=== PATIENT | female | born 1970 | race Caucasian/White ===

== ENCOUNTER 2022-10-17 11:04 | Emergency (ER) | payer OTHER, SELFPAY ==
[2022-10-17 11:18] VITALS: BP 132/87; PULSE 67; RESP 20; TEMP 36.6; O2SAT 100; BMI 26.5
--- NOTE | 2022-10-17 11:36 | ED_ITS ---
HPI - Extremity Injury (Upper) General Chief Complaint: Extremity Pain/Injury, Upper Stated Complaint: Broken right arm Time Seen by Provider: 10/17/22 11:29 History of Present Illness HPI narrative: This 52-year-old female comes in with an injury to her right wrist that occurred about an hour prior to arrival. She slipped on ice and fell onto her right outstretched hand. She has a deformity at the right wrist. She did not hit her head or have any other injury. She is otherwise in good health. Related Data Home Medications Medication Instructions Recorded Confirmed fluoxetine 40 mg capsule (Prozac) 40 mg PO DAILY 10/17/22 10/17/22 Previous Rx's Medication Instructions Recorded hydrocodone 5 mg-acetaminophen 325 1 tab PO Q4-6H PRN pain #20 tabs 10/17/22 mg tablet Allergies Allergy/AdvReac Type Severity Reaction Status Date / Time No Known Drug Allergies Allergy Verified 10/17/22 11:21 Review of Systems Status of ROS: Reports: 10 or more systems reviewed and unremarkable except as noted in History and below Narrative: Constitutional: No fevers, no weight gain or loss. Eyes: No discharge. No vision changes. HENT: No congestion, no sore throat, no ear pain. Cardiovascular: No chest pain, no palpitations. Respiratory: No shortness of breath, no wheezes, no cough. Gastrointestinal: No abdominal pain, no vomiting, no diarrhea. Genitourinary: No dysuria, no hematuria. Musculoskeletal: Right wrist injury as described above. Skin: No rashes, no pruritis. Neurological: No dizziness, weakness, sensory change, speech change. Endo/Heme/Allergies: No bruising or bleeding. No polydipsia. Pysch: no suicidality, no anxiety, no insomnia. All other systems reviewed and are negative. PFSH PFS Social History Smoking Status: Never smoker Do you use any of these nicotine containing products: None Second hand tobacco smoke exposure: No How often do you have a drink containing alcohol: 4 or more times a week How many standard drinks containing alcohol do you have on a typical day: 1 or 2 How often do you have six or more drinks on one occasion: Never AUDIT-C Alcohol total score: 4 Non-prescribed substance use: denies use Exam Narrative: Exam Narrative: Constitutional: Well-developed, well-nourished, no acute distress. HEENT: Normocephalic, atraumatic. Neck: Normal range of motion. Nontender. Supple. Heart: Intact distal pulses. Lungs: No chest discomfort. No wheezes, rhonchi, or rales. Abdomen: Nontender. Back: Normal range of motion. Extremities: Mild swelling in the right wrist with some dorsal angulation typical of wrist fracture. There is no skin injury. Skin: Intact. No rash. Warm. No erythema or pallor. Neurologic: No altered sensation. No weakness. Alert and oriented. Psychiatric: No suicidality. No anxiety or depression. No insomnia. Nursing notes and vitals signs are reviewed. Const: Vital Signs, click to edit/add: Vital Signs - 24 hr 10/17/22 11:18 Temperature 97.8 F Pulse Rate [Pulse Oximeter] 67 Respiratory Rate 20 Blood Pressure [Le ft Upper Arm] 132/87 Pulse Oximetry 100 Oxygen Delivery Me thod Room Air Course Vital Signs Vital signs: Initial Vital Signs Temperature 97.8 F 10/17/22 11:18 Temperature Source Temporal Artery Scan 10/17/22 11:18 Pulse Rate 67 10/17/22 11:18 Respiratory Rate 20 10/17/22 11:18 Blood Pressure 132/87 10/17/22 11:18 Blood Pressure Mean 102 10/17/22 11:18 Blood Pressure Position Sitting 10/17/22 11:18 Pulse Oximetry 100 10/17/22 11:18 Oxygen Delivery Method 10/17/22 11:18 Vital Signs Temperature 97.8 F 10/17/22 11:18 Pulse Rate 67 10/17/22 11:18 Respiratory Rate 20 10/17/22 11:18 Blood Pressure 132/87 10/17/22 11:18 Pulse Oximetry 100 10/17/22 11:18 Oxygen Delivery Method 10/17/22 11:18 Temperature 97.8 F 10/17/22 11:18 Pulse Rate 67 10/17/22 11:18 Respiratory Rate 20 10/17/22 11:18 Blood Pressure 132/87 10/17/22 11:18 Pulse Oximetry 100 10/17/22 11:18 Oxygen Delivery Method 10/17/22 11:18 MDM - Extremity Injury (Upper) MDM Narrative Medical decision making narrative: This patient comes in with injury to her right wrist. X-ray imaging shows a fracture of the distal radius and ulna which is intra-articular and comminuted. The patient did eat about 3 hours prior to arrival. I discussed options with her about pain relief when reducing this fracture. I contacted Anesthesia who was able to do a nerve block. This was placed by anesthesia and got excellent results for her whole right arm. I reduced the fracture and x-ray images post reduction show good improvement and alignment. The patient was placed in a sugar-tong splint using Ortho Glass material. She received a sling and instructions were given regarding care of her injury, the splint, and the sling. Follow-up appointment with orthopedic surgery is arranged and the patient received prescription for tablets of [place]. Imaging Data XR R Wrist: Radiologist's impression: FINDINGS: There is an acute comminuted fracture of the distal radius. Fracture lines extend to the articular surface. There is ulnar and dorsal displacement of the distal fracture fragment. Dorsal tilt of the radial articular surface. Soft tissue swelling about the wrist. IMPRESSION: Acute comminuted displaced intraarticular fracture of the distal radius. Discharge Plan Discharge Clinical Impression: Fracture of wrist Patient Disposition: Home, Self-Care Condition: Improved Additional Instructions: Wear splint and sling. Take medication as needed and directed. Follow up with orthopedic clinic as scheduled. Return if worsening. Prescriptions: New hydrocodone-acetaminophen 5-325 mg tablet 1 tab PO Q4-6H PRN (Reason: pain) Qty: 20 0RF No Action fluoxetine [Prozac] 40 mg capsule 40 mg PO DAILY Follow Up/Referrals: Kaila Saucedo MD [Primary Care Provider] - Stand Alone Forms: [employer] Info Instructions
--- NOTE | 2022-10-17 11:36 | CRLHL7_ITS ---
For Patients: As a result of the Century Cures Act, medical imaging exams and procedure reports are released immediately into your electronic medical record. You may view this report before your referring provider. If you have questions, please contact your health care provider. INDICATION: Injury. TECHNIQUE: Right wrist 3 view. COMPARISON: None. FINDINGS: There is an acute comminuted fracture of the distal radius. Fracture lines extend to the articular surface. There is ulnar and dorsal displacement of the distal fracture fragment. Dorsal tilt of the radial articular surface. Soft tissue swelling about the wrist. IMPRESSION: Acute comminuted displaced intraarticular fracture of the distal radius. Dictated by Whit Morgan MD @ 10/17/2022 12:16:19 PM (Electronically Signed)
--- NOTE | 2022-10-17 13:13 | CRLHL7_ITS ---
For Patients: As a result of the Century Cures Act, medical imaging exams and procedure reports are released immediately into your electronic medical record. You may view this report before your referring provider. If you have questions, please contact your health care provider. Indication: Postreduction.. Technique: Right wrist, 1 views. Comparison: None. Findings/impression: Single lateral view of the right wrist post reduction demonstrates improved anatomic alignment of the fracture fragments. There is decreased degree of impaction at the fracture site compared to the prior examination. Dorsal angulation is also improved. Soft tissue swelling persists surrounding the wrist. Dictated by Miller Mace MD @ 10/17/2022 1:38:10 PM (Electronically Signed)
--- NOTE | 2022-10-17 13:16 | P.NB_ITS ---
Nerve Block Nerve Block Time Seen by Provider: 12:47 Date Seen: 10/17/22 Type of block requested by surgeon for post-operative analgesia: supraclavicular Side: right Time out performed: Yes Verification of patient name: Yes Verification of date of : Yes Site marking: site marked Name of person performing procedure: Yvon Continuous monitoring Was continuous monitoring of O2 sat, B/P, final operations technician, recorded every 15 minutes?: Yes Procedure Checklist: sterile prep, needles and gloves Ultrasound guided. Images saved: Yes Medications given in 5ml increments after negative aspiration: Lidocaine %: 2 mL: 30 Needle gauge: 22 Patient tolerated procedure well: Yes Block Charges Block Charge (with Pro Fee): Brachial Plexus Use of Ultrasound Machine for Block: Yes- US Guidance/pain block
[2022-10-17 13:37] VITALS: BP 130/87; PULSE 74; RESP 18; O2SAT 100
== END 2022-10-17 13:49 | disposition home or self-care (01) ==
PROVIDERS: Emergency Provider Emergency Medicine Emergency Medical Services; PCP Family Medicine
DX: S52.571A Other intraarticular fracture of lower end of right radius, initial encounter for closed fracture (principal); W00.9XXA Unspecified fall due to ice and snow, initial encounter
CPT/HCPCS: 25605; 64415; 73100; 73110; 76942; 99284

== ENCOUNTER 2022-10-24 08:38 | Day surgery (SDC) | payer OTHER, SELFPAY ==
[2022-10-24] VITALS (10 sets, daily range): BP systolic 96–114; BP diastolic 59–79; PULSE 52–62; RESP 16; TEMP 36.2–36.7; O2SAT 95–100; BMI 25.9
--- NOTE | 2022-10-24 09:02 | SUR.PREOP ---
PATIENT REFUSED [facility], ON PERIOD NOW.
[2022-10-24] MEDS: SODIUM CHLORIDE 0.9 % (FLUSH) 10 ML SYRINGE IVF (09:15)
[2022-10-24] MEDS: LACTATED RINGERS 1000 ML 1,000 ML 100 ML IV (09:15)
--- NOTE | 2022-10-24 09:28 | SUR.PREOP ---
HOME COVID NEGATIVE.
[2022-10-24] MEDS: MIDAZOLAM HCL 1 MG/ML inj IVP (10:25)
[2022-10-24] MEDS: fentaNYL 100 MCG/2 ML inj IVP (10:25)
--- NOTE | 2022-10-24 10:35 | SUR.PREOP ---
TIME?OUT:?1023 PT/RN/MDA?VERIFICATION?OF?SURGICAL?SITE,?PROCEDURE,?AND?CONSENT OBTAINED?PRIOR?TO?INVASIVE?PROCEDURE.
--- NOTE | 2022-10-24 10:45 | CRLHL7_ITS ---
For Patients: As a result of the Cures Act, medical imaging exams and procedure reports are released immediately into your electronic medical record. You may view this report before your referring provider. If you have questions, please contact your health care provider. Indication: ORIF right wrist Technique: Two fluoroscopic images right wrist. Fluoroscopic time 8.0 seconds. IMPRESSION: Fluoroscopic guidance for open reduction internal fixation of distal radial fracture. Dictated by Saeid Carver MD @ 10/24/2022 12:43:39 PM (Electronically Signed)
--- NOTE | 2022-10-24 10:51 | W.ANESCHARGE ---
Anesthesia Charges Start Date/Time Anesthesia Start Date: 10/24/22 Anesthesia Start Time: 11:12 Stop Date/Time Anesthesia Stop Date: 10/24/22 Anesthesia Stop Time: 12:12
--- NOTE | 2022-10-24 10:52 | P.NB_ITS ---
Nerve Block Nerve Block Time Seen by Provider: 10:29 Date Seen: 10/24/22 Type of block requested by surgeon for post-operative analgesia: axillary Side: right Time out performed: Yes Verification of patient name: Yes Verification of date of : Yes Site marking: site marked Name of person performing procedure: Yvon Continuous monitoring Was continuous monitoring of O2 sat, B/P, awake overnight monitor, recorded every 15 minutes?: Yes Procedure Checklist: sterile prep, needles and gloves Ultrasound guided. Images saved: Yes Medications given in 5ml increments after negative aspiration: Ropivicaine %: 0.5 mL: 30 Needle gauge: 22 Patient tolerated procedure well: Yes Additional comments: Needle noted adjacent to nerve Block Charges Block Charge (with Pro Fee): Brachial Plexus Use of Ultrasound Machine for Block: Yes- US Guidance/pain block
[2022-10-24] MEDS: CEFAZOLIN 2 GM in 0.9 % SODIUM CHLORIDE Mini-bag 100 ML IVPB (11:16)
--- NOTE | 2022-10-24 12:09 | P.ORPRC_ITS ---
Procedure Note Date of procedure: 10/24/22 Procedure: PREOPERATIVE DIAGNOSES: 1. Right distal radius fracture extra-articular, transverse, metaphyseal, dorsally angulated and displaced POSTOPERATIVE DIAGNOSES: 1. Right distal radius fracture extra-articular, transverse, metaphyseal, dorsally angulated and displaced NAME OF OPERATION: 1. Right distal radius open reduction with internal fixation of extra- articular, 2 part 2. 30744 - intraoperative fluoroscopy up to 1 hour. SURGEON: James Grewal MD CONCRETE FLOATER: Uzair Ledesma - Of note, an licensed physical therapist assistant was critical for this case to aide in patient positioning, limb manipulation, tissue retraction, closure, and splinting. ANESTHESIA: Supraclavicular block IMPLANTS: Synthes dual column volar locking plate with 1.8 mm distal locking pegs and 2.4 & 2.7 mm proximal locking and nonlocking screws, respectively.. TOURNIQUET: 30 minutes at 225 torr. INDICATIONS: The patient is a pleasant, 52-year-old female who sustained a right wrist injury after a fall. They had difficulty with use of the extremity and deformity. Workup included xrays which revealed an unstable fracture. Given these findings, surgery was recommended to stablize the fracture. FINDINGS: Closed, dorsally angulated and displaced distal radius fracture. Primarily extra-articular metaphyseal type fracture. PROCEDURE: Following a thorough discussion of risks, benefits, and alternatives, consent was obtained and the operative extremity was marked. The patient was b rought to the operating room and placed supine on the operating table. Induction of anesthesia was achieved. Appropriate time out was performed identifying proper patient, site and procedure. 1 gram of iv Ancef was administered within 1 hour of incision preoperatively. The right upper extremity was prepped and draped in the appropriate sterile fashion using ChloraPrep prep. The limb was exsanguinated and the tourniquet inflated. A longitudinal incision was made overlying the FCR tendon. Sharp incision through skin and subcutaneous tissue allowed identification of the FCR tendon. The superficial sheath was sharply divided, the tendon retracted ulnarly, and the deep fascial sheath also released. The FPL was retracted ulnarly and the pronator quadratus was sharply released from the radial border of the radius and subperiosteally elevated. The fracture was encountered and cleared of interposed periosteum / fracture hematoma. A reduction was performed and the appropriate plate selected. Temporary stabilization allowed C-arm fluoroscopy to confirm proper fracture reduction and plate positioning. The oblong hole was filled with a nonlocking screw followed by multiple distal lo cking pegs being careful to keep these in subchondral bone and extraarticular. Finally, the remaining proximal shaft screws were drilled and placed. Fluoroscopic imaging confirmed the improved position and showed the fracture to be stable. At this stage, the wound was thoroughly irrigated with normal saline. Closure performed with 0 Vicryl for the pronator quadratus, followed by deflation of the tourniquet. All major bleeding points were cauterized. Closure was then completed with 3-0 Vicryl for the subcutaneous, and 4-0 statafix for subcuticular closure. Dressings were applied along with a volar/dorsal splint. The patient was awoken from anesthesia and transferred to PACU in stable condition. PLAN: 1. Elevate operative extremity. 2. Ice, acetominphen or ibuprofen PRN. 3. Percocet for pain as needed. 4. Follow up with me in 7-12 days for wound check and splint removal. Reapply a short-arm cast. Total immobilization of splinting and/or cast should be 3 weeks. Therefore, follow-up with 3 eugenio for cast removal-this could be a nurse visit. Then follow-up with me at 7-8 weeks.
--- NOTE | 2022-10-24 12:13 | W.ANESCHARGE ---
Anesthesia Charges Start Date/Time Anesthesia Start Date: 10/24/22 Anesthesia Start Time: 11:12 Stop Date/Time Anesthesia Stop Date: 10/24/22 Anesthesia Stop Time: 12:12
== END 2022-10-24 13:02 | disposition home or self-care (01) ==
PROVIDERS: PCP Family Medicine; Visit Provider Orthopaedic Surgery Sports Medicine
PROC: (CPT 25575; principal; 2022-10-24 10:45)
DX: S52.551A Other extraarticular fracture of lower end of right radius, initial encounter for closed fracture (principal)
CPT/HCPCS: 25607; 01830; 73110; 76000; 76942; A4580; C1713; J0690; J2250; J2704; J2795; J3010; J3490; J7120